=== PATIENT | male | born 1955 | race Caucasian/White ===

== ENCOUNTER 2024-10-15 05:40 | Day surgery (SDC) | payer MEDICARE ==
[2024-10-09 11:16] VITALS: BP 176/88
[~2024-10-15] VITALS: Ht 195.6 cm; Wt 154.5 kg
[~2024-10-15 05:40] MED LIST: ACETAMINOPHEN500 MG PO; CEFUROXIME250 MG PO; CloNIDine HCl/Pf 1,000 MCG/10 ML VIAL ONE; DEXAMETHASONE SOD PHOS 4 MG/ML VIAL ONE; DICLOFENAC SODI75 MG PO; FAMOTIDINE 20 MG/ 2 ML VIAL ONE; FLECAINIDE ACE150 MG PO; FUROSEMIDE40 MG PO; GABAPENTIN300 MG PO; HYDRALAZINE HC100 MG PO; HYDROCHLOROTHIA25 MG PO; KETAMINE in NS 50 MG/5 ML SYR ONE; KETOROLAC TROMETHAMINE 30 MG/ML VIAL ONE; LACTATED RINGER'S 1,000 ML IV ONE; LACTATED RINGER'S 1,000 ML IV SCH; LIDOCAINE HCL 2% 5 ML SDV ONE; LIPITOR20 MG PO; METOCLOPRAMIDE HCL 10 MG/2 ML SDV ONE; MIDAZOLAM HCL 2 MG/2 ML VIAL ONE; OXYCODONE HCL5 MG PO; Ropivacaine HCl 0.5% 30 ML VIAL ONE; SENNA LAX8.6 MG PO; VENTOLIN HFA18 GM; VERAPAMIL ER240 MG PO; VERAPAMIL HCL120 MG PO; XARELTO20 MG PO; ZESTRIL40 MG PO; fentaNYL citrate 100 MCG/2 ML VIAL ONE; ondansetron HCL 4 MG/2 ML VIAL ONE; propofoL 200 MG/20 ML VIAL ONE
[2024-10-15] MEDS ORDERED: LIDOCAINE HCL 2% 5 ML SDV ONE (05:41)
[2024-10-15] MEDS ORDERED: DAILY VALUE1 EACH PO (06:14)
[2024-10-15 06:35] VITALS: BP 192/81
[2024-10-15] MEDS ORDERED: GABAPENTIN 600 MG TAB PO SCH (07:00)
[2024-10-15] MEDS ORDERED: ondansetron HCL 4 MG TAB PO SCH (07:00)
[2024-10-15] MEDS ORDERED: LIDOCAINE HCL 1% 5 ML SDV INJ ONE (07:00)
[2024-10-15] MEDS ORDERED: TRANEXAMIC ACID IN NACL,ISO-OS 1,000 MG/100 ML PIGGYBACK IV SCH ×3 (07:00→10:45)
[2024-10-15] MEDS ORDERED: INTRA-ARTICULAR ANALGESIC INJECTION XX SCH (07:00)
[2024-10-15] MEDS ORDERED: OXYCODONE HCL 5 MG TAB PO PRN (07:00)
[2024-10-15] MEDS ORDERED: KETOROLAC TROMETHAMINE 30 MG/ML VIAL IV PRN (07:00)
[2024-10-15] MEDS ORDERED: OXYCODONE HCL 5 MG TAB PO SCH (07:00)
[2024-10-15] MEDS ORDERED: ROPIVACAINE IN 0.9% SOD CHL/PF 545 ML ELS.PMP.HR IRRIGATION SCH (07:00)
[2024-10-15] MEDS ORDERED: CEFAZOLIN SODIUM 3 GM/30 ML SYR IV SCH ×2 (07:00→15:00)
[2024-10-15] MEDS ORDERED: PANTOPRAZOLE SODIUM 40 MG TABEC PO SCH (07:00)
[2024-10-15] MEDS ORDERED: IBLOOD GLUCOSE TEST STRIP 1 EA TEST VI PRN ×2 (07:00→08:30)
[2024-10-15] MEDS ORDERED: TRANEXAMIC ACID 1,000 MG/10 ML AMP ONE (07:20)
--- NOTE | 2024-10-15 07:33 | NUR ---
PT GONE FOR PROCEDURE. VISITED WITH IN ROOM. NO IMMEDIATE NEEDS. SMALL PARTS ASSEMBLER PROVIDED SUPPORTIVE PRESENCE, HOSPITALITY, PRAYER, FACILITATED INTERACTION WITH THERAPY ANIMAL.
[2024-10-15] MEDS ORDERED: ATROPINE SULFATE 1 MG/ML VIAL ONE (07:42)
[2024-10-15] MEDS ORDERED: ePHEDrine sulfate 50 MG/ML AMP ONE (08:11)
[2024-10-15] MEDS ORDERED: METOCLOPRAMIDE HCL 10 MG/2 ML SDV IV PRN (08:30)
[2024-10-15] MEDS ORDERED: PROCHLORPERAZINE EDISYLATE 10 MG/2 ML VIAL IV PRN (08:30)
[2024-10-15] MEDS ORDERED: NALOXONE HCL 0.4 MG SYR IV PRN (08:30)
[2024-10-15] MEDS ORDERED: MORPHINE SULFATE 10 MG/ML VIAL IV PRN (08:30)
[2024-10-15] MEDS ORDERED: droPERidol 5 MG/2 ML VIAL IV PRN (08:30)
[2024-10-15] MEDS ORDERED: ondansetron HCL 4 MG/2 ML VIAL IV PRN (08:30)
[2024-10-15] MEDS ORDERED: fentaNYL citrate 50 MCG/ML SDV IV PRN (08:30)
--- NOTE | 2024-10-15 09:05 | NUR ---
10/15/24 0905 Mya Vuong 0808 PT TO PACU AWAKE AND ALERT DENIES PAIN AND NAUSEA. PT ABLE TO LIFT BOTH LEGS OFF THE BED. HE IS TO MOVE TOES ON BOTH FEET. 0855 O2 TURNED OFF PT MAINTAINS SATS ABOVE 95% ON ROOM AIR. PHYSICIAN/INTERNIST AT BEDSIDE TAKING PIC OF RT KNEE. PT TOLERATED WELL.
[2024-10-15 09:20] VITALS: BP 159/71
--- NOTE | 2024-10-15 09:20 | NUR ---
0920-PT ARRIVED BACK TO DS AAOX3 ON RA. PT ANSWERING QUESTIONS APPROPRIATELY AND IS ABLE TO MAKE HIS NEEDS KNOWN. PTS IN ROOM UPON HIS RETURN AND REMAINS AT BEDSIDE. VS TAKEN. REPORT RECEIVED FROM [employer]ANCE [employer]. SURGICAL SITE VISULAIZED WITH INS[employer]ANCE [employer]. DRSG APPEARS CDI. ON Q PUMP IN PLACE AND NOTED TO BE SET AT 4. SPINAL RESOLVED. PT WITH FULL FEELING IN RLE, ABLE TO WIGGLE TOES AND LIFT EXTREMITY OFF OF THE BED. IV SITE ASSESSED, PATENT, AND LR INFUSING PER ORDERS. PT DENIES NAUSEA AND REPORTS PAIN 4/10 IN R KNEE. PT PROVIDED ICE WATER, COFFEE, JELLO, AND CRACKERS. CRYO-CUFF IN PLACE TO R KNEE. HEELS FLOATS IN PLACE AND RLE ELEVATED AT WAIST LEVEL.CALL LIGHT GIVEN. BED IN LOW POSITION, WHEELS LOCKED, AND BILAT RAILS IN PLACE FOR SAFETY. ALL QUESTIONS ANSWERED.
--- NOTE | 2024-10-15 09:45 | NUR ---
PT HAS BEEN ABLE TO TOLERATE PO FLUIDS AND FOOD. PT HAS DRANK 2 CUPS OF COFFEE, DRINKING WATER, AND HAS EATEN A JELLO CUP W/O ISSUES. PT DENIES ANY FEELSING OF NAUSEA. PT REPORTING PAIN IN R KNEE AT 4-5/10. PT GIVEN PO PAIN MEDS PER ORDERS. REMAINS IN ROOM AT PTS BEDSIDE. CALL LIGHT WITHIN PT REACH. BED IN LOW POSITION, WHEELS LOCKED. BILAT RAILS IN PLACE FOR SAFETY.
[2024-10-15 10:20] VITALS: BP 181/76
--- NOTE | 2024-10-15 10:20 | NUR ---
1020-INTO PTS ROOM FOR ROUTINE REASSESSMENT. VS TAKEN AND NOTED TO BE WITHIN PTS BASELINE. IV SITE ASSESSED. SURGICAL SITE VISULAIZED AND NO ACUTE CHANGES NOTED FROM INITIAL ASSESSMENT. CRYO CUFF REMAINS IN PLACE TO R KNEE. RLE ELEVATED ABOVE HIP LEVEL WITH HEEL FLOATS IN PLACE. PT DENIES NAUSEA AND IS TAKING PO FOOD AND FLUIDS WELL, W/O ISSUES NOTED OR REPORTED. PT REPORTS IMPROVEMENT IN PAIN TO 3/10 AND STATES THIS TO BE TOLERABLE. CMS REMAINS INTACT. REMAINS IN ROOM AT PTS BEDSIDE. CALL LIGHT WITHIN REACH. BED IN LOW POSITION WITH WHEELS LOCKED. BILAT RAILS IN PLACE. URINAL GIVEN AT PT REQUEST HE REPORTS HE MAY NEED TO VOID SOON.
--- NOTE | 2024-10-15 11:05 | NUR ---
LUNCH ORDER PLACED WITH DIETARY.
--- NOTE | 2024-10-15 11:15 | NUR ---
1110-PT WITH FIRST POST-OP VOID OF APPROX 150ML OF CLR, YELLOW URINE. URINAL EMPTIED. 1115-PTS LUNCH ARRIVED AND WAS DELIVERED TO PT. PT SITTING UP IN BED EATING. IN ROOM AT PTS BEDSIDE.
[2024-10-15 11:20] VITALS: BP 162/78
--- NOTE | 2024-10-15 12:10 | NUR ---
1120-INTO PTS ROOM FOR ROUTINE REASSESSMENT. VS TAKEN. IV SITE ASSESSED. IV SL'D PT IS TOLERATING PO FLUIDS AND FOOD WELL W/O ISSUES. SURGICAL SITE VISUALIZED AND NO ACUTE CHANGES NOTED FROM PREVIOUS ASSESSMENT. PT REPORTS PAIN IN KNEE CONTINUES TO IMPROVE AND RATES AT 2-3/. PT CONT TO DENY NAUSEA. PT EATING LUNCH AND AT BEDSIDE. 1130-PHYSICAL THERAPY INTO PTS ROOM. PT OFF UNIT WITH PHYSICAL THERAPY. 1210-PT BACK FROM WORKING WITH PHYSICAL THERAPY. PHYSICAL THERAPIST REPORTS PT PASSED. DR. KONG INFORMED AND VERBAL ORDER RECEIVED FOR DISCHARGE AFTER DOSE OF ANCEF IS GIVEN. ALSO VERFIED WITH DR. KONG WHEN PT SHOULD RESTART XARELTO. PER DR. KONG, PT MAY RESTART XARELTO ON 10/16/24.ORDERS ENTERED.
[2024-10-15 12:35] VITALS: BP 154/67
--- NOTE | 2024-10-15 13:10 | NUR ---
1235-INTO PTS ROOM FOR ROUTINE REASSESSMENT. VS TAKEN. SURGICAL SITE VISULAIZED POST AMBULATION AND REMAINS CDI WITHOUT SIGNS OF BLEEDING OR SHADOWING OBSERVED. URINAL EMPTIED OF APPROX 200 ML OF CLR, YELLOW URINE. PT DENIES ANY NAUSEA WHEN ASKED. PT REPORTS PAIN IS 2/10 AND IMPROVED WITH WALKING. IN ROOM AND AT BEDSIDE. CMS REMAINS INTACT. CRYO CUFF IN PLACE TO R KNEE. IV SITE ASSESSED. 1245-PT WITH CALL LIGHT AND PERSONAL BELONINGS WITHIN REACH. ASSISTING PT IN DRESSING FOR DISCHARGE. 1300-INTO PTS ROOM TO ADMINISTER IV ANCEF. IV FLUSHED WITH 10 ML NS AND IV THEN REMOVED. TIP OBSERVED TO BE INTACT. PRESSURE DRSG APPLIED WITH GAUZE AND COBAN. DISCHARGE EDUCATION COMPLETED WITH PT. FOLLOW UP APPTS GIVEN TO PT. PT ALSO PROVIDED WITH DR. KONG OFFICE AFTER HOURS PHONE NUMBER. EMPHASIS PLACED ON XARELTO TO BE RESUMED TOMORROW, 10/16/24. CRYO CUFF EMTIED. PT PROVIDED ICE PACK FOR TRIP HOME. ALL QUESTIONS ANSWERED. LEFT TO PULL VEHICLE AROUND TO FRONT.
--- NOTE | 2024-10-15 13:15 | NUR ---
PT DISCHARGED FROM DS VIA WC TO PASSENGER SIDE OF WIFES VEHICLE. ALL PERSONAL BELONINGS TAKEN WITH PT.
--- NOTE | 2024-10-15 13:45 | OR ---
[facility] [address] [place] [place], [place] [address] Signed DATE OF OPERATION: 10/15/2024 SURGEON: Larisa Vuong MD PREOPERATIVE DIAGNOSIS: Degenerative joint disease, right knee. POSTOPERATIVE DIAGNOSIS: Degenerative joint disease, right knee. PROCEDURE PERFORMED: Right total knee arthroplasty with Fly. PHOTOSTAT OPERATOR: Mariajose Hackett PA-C. Mariajose was present and critical for all portions of procedure. ANESTHESIA: Spinal. BLOOD LOSS: 175 mL. TOURNIQUET TIME: Zero. IMPLANTS: Martell Triathlon size 7, 9 mm poly and a 38 mm patella. BRIEF HISTORY: Darwin is a 69-year-old gentleman with bilateral knee arthritis. He has undergone successful left knee replacement and wished to proceed with the right. Risks, benefits, and alternatives were discussed at length. DESCRIPTION OF OPERATION: After medical clearance, he was taken to the operating room. After adequate anesthesia, he was placed on the operating room table. All downside pressure points were well padded and hip bump was placed. The leg was then prepped and draped in a standard sterile fashion. The leg was approached through a standard anterior midline incision, carried through the skin and subcutaneous tissue. A low midvastus arthrotomy was Electronically Signed By: LARISA VUONG MD 10/15/24 1345 PATIENT NAME: DARWIN CASTELLON OPERATIVE REPORT DATE OF : 55 REPORT #: [id number] PHYSICIAN: LARISA VUONG MD PCP: GILDARDO SEGURA PA-C REPORT IS CONFIDENTIAL AND NOT TO BE RELEASED WITHOUT AUTHORIZATION [facility] [address] [place], [place] [address] Signed performed and the infrapatellar fat pad was excised. Anterior horns of menisci were transected and the ACL was transected, PCL was found to be intact. The computer arrays for the robot were then placed in the medial femoral condyle and proximal tibia. The leg was then registered with the computer followed by the fine anatomic points of the knee. The varus and valgus testing was undertaken and a couple degrees of varus were added to the tibia. The robot was then brought in the four straight cut and 2 angle cuts were made with care taken to protect the patellar tendon and MCL. The bone remnants removed as were any remaining osteophytes. The posterior osteophytes were removed off the femur and posterior release was performed. The trials were then positioned. The knee was taken through range of motion and found to be stable with a 9 mm polyethylene. The patella was cut sized and drilled for a 38 mm patella. The distal femoral drill holes were completed. The keel punch and drill holes were completed on the tibia. The components were then obtained. The tibia was impacted into position first followed by the femur correction followed by the polyethylene. The femur was then impacted. The knee was extended and loaded. The patella was clamped into position until it was seated flush. The knee was taken through range of motion and the patella tracked well. The knee was stable throughout. The knee was then irrigated with one bottle of Surgiphor followed by normal saline. The periarticular soft tissues were injected with 100 mL of ropivacaine and Toradol mixture. The On-Q pain pump was percutaneously placed into the adductor canal from the suprapatellar pouch. The arthrotomy was then closed using #2 FiberWire and #2 Stratafix, subcutaneous tissue with 0 Stratafix and the skin with 3-0 Stratafix. The wound was sealed with Dermabond and Steri-Strips. The wound was dressed with an Acticoat-7 dressing, ABD, and Carlin wrap. He tolerated the procedure well. All sponge, needle, and instrument counts were correct. Larisa Vuong MD BA/MODL /[id number] Copies: ~ Electronically Signed By: LARISA VUONG MD 10/15/24 1345 PATIENT NAME: DARWIN CASTELLON OPERATIVE REPORT DATE OF : 55 REPORT #: [id number] PHYSICIAN: LARISA VUONG MD PCP: GILDARDO SEGURA PA-C REPORT IS CONFIDENTIAL AND NOT TO BE RELEASED WITHOUT AUTHORIZATION
[2024-10-15] MEDS ORDERED: ACETAMINOPHEN 500 MG TAB PO SCH (15:00)
[2024-10-15] MEDS ORDERED: SENNOSIDES 1 TAB PO SCH (21:00)
[2024-10-16] MEDS ORDERED: Rivaroxaban 10 MG TAB PO SCH (08:00)
[2024-10-16] MEDS ORDERED: DICLOFENAC SOD 75 MG TABEC PO SCH (08:00)
== END 2024-10-15 13:15 | disposition home or self-care (01) ==
LOC: DS 05:40
PROVIDERS: ATTEND Specialist
PROC: 0SRC0JZ Replacement of Right Knee Joint with Synthetic Substitute, Open Approach (ICD-10-PCS; principal; 2024-10-15 07:00)
DX: M17.11 Unilateral primary osteoarthritis, right knee (principal); I48.91 Unspecified atrial fibrillation; I10 Essential (primary) hypertension; I25.10 Atherosclerotic heart disease of native coronary artery without angina pectoris; E78.5 Hyperlipidemia, unspecified; Z79.01 Long term (current) use of anticoagulants; Z79.899 Other long term (current) drug therapy
CPT/HCPCS: 01400; 64447; 64450; 73560; 76942; 97110; 97161; 97530; A9270; C1713; C1776; J0461; J0690; J0735; J1100; J1885; J2003; J2250; J2405; J2704; J2765; J2795; J3010; J3490; J7121; J7999